=== PATIENT | male | born 1940 | race Caucasian/White ===

== ENCOUNTER → 2021-06-06 | Outpatient (CLI) | payer MEDICARE, BC ==
[~2021-06-06] MED LIST: FISH OIL CONC1000 MG PO; FLAXSEED OIL1 CAP PO; VITAMIN C1 TAB PO; VITAMIN E800 I1 PO; co q 10
== END ==
LOC: COL.RAD 10:38
DX: R25.1 Tremor, unspecified (principal); R26.89 Other abnormalities of gait and mobility; R41.3 Other amnesia
CPT/HCPCS: Q9967

== ENCOUNTER 2022-11-16 10:30 | Outpatient (RCR) | payer MEDICARE, BC | END 2022-11-17 | disposition home or self-care (01) | LOC: WSPT | DX: R26.89 Other abnormalities of gait and mobility (principal) ==

== ENCOUNTER → 2023-11-17 | Outpatient (CLI) | payer MEDICARE, BC ==
[2023-11-17 10:22] LABS: COLLECTION METHOD CLEAN CATCH; URINE APPEARANCE Clear (CLEAR/HAZY); URINE COLOR Yellow (YELLOW)
[2023-11-17 10:23] LABS: SQUAMOUS EPITHELIAL 0-2 /hpf (0-10); URINE BLOOD Negative (NEGATIVE); URINE GLUCOSE Negative (NEGATIVE); URINE KETONE TRACE (NEGATIVE); URINE NITRATE Negative (NEGATIVE); URINE PROTEIN(semi-quant) Negative (NEGATIVE); URINE RBC 0-2 /hpf (0-2); URINE UROBILINOGEN 0.2 E.U/dL (0.2-1.0)
== END ==
LOC: COL.LAB 09:29
PROVIDERS: Internal Medicine
DX: Z01.89 Encounter for other specified special examinations (principal)